=== PATIENT | female | born 1975 | race Caucasian/White ===

== ENCOUNTER 2023-01-25 10:51 | Emergency (ER) | payer OTHER ==
[2023-01-25 11:05] VITALS: BP 129/83; PULSE 79; RESP 16; TEMP 99.5; BMI 24.7
== END 2023-01-25 11:31 | disposition home or self-care (01) ==
LOC: FER 10:51
DX: I10 Essential (primary) hypertension (principal)
CPT/HCPCS: 99282-25

== ENCOUNTER 2023-09-26 08:57 | Emergency (ER) | payer OTHER ==
[2023-09-26 09:14] VITALS: RESP 18; TEMP 98.5; BMI 23.2
[2023-09-26 09:37] LABS: HEMATOCRIT 47.2 % (32.4-45.2); HEMOGLOBIN 15.4 G/dL (10.7-15.3); MCH 28.5 pg (25.7-33.7); MCHC 32.7 g/dl (32.0-36.0); MEAN CELL VOLUME 87.3 fl (80-96); MEAN PLT VOLUME 9.9 fl (7.5-11.1); RBC 5.41 10^6/uL (3.60-5.2); RDW 13.8 % (11.6-15.6); WHITE BLOOD COUNT 7.7 10^3/uL (4.0-10.8)
[2023-09-26 09:49] LABS: ALBUMIN 4.6 g/dl (3.4-5.0); ALK PHOS 45 U/L (45-117); ANION GAP 10 mmol/L (4-13); BILIRUBIN,TOTAL 0.4 mg/dl (0.2-1); CALCIUM 9.8 mg/dl (8.5-10.1); CHLORIDE 101 mmol/L (98-107); CO2 25 mmol/L (21-32); CREATININE 0.7 mg/dl (0.6-1.3); GLUCOSE,RANDOM 94 mg/dl (74-106); MAGNESIUM 1.7 mg/dL (1.8-2.4); POTASSIUM 3.6 mmol/L (3.5-5.1); SGOT/AST 12 U/L (15-37); SGPT/ALT 14 U/L (7-52); SODIUM 136 mmol/L (136-145); TOT PROT 7.6 g/dl (6.4-8.2)
[2023-09-26 10:06] LABS: PLATELET ESTIMATE ADEQUATE
[2023-09-26 10:35] VITALS: BP 121/74; PULSE 89
== END 2023-09-26 11:18 | disposition home or self-care (01) ==
LOC: FER 08:57
DX: R00.2 Palpitations (principal); R42 Dizziness and giddiness; R61 Generalized hyperhidrosis; F41.0 Panic disorder [episodic paroxysmal anxiety]
CPT/HCPCS: 36415; 71046-TC-FY; 80053; 81003; 81015; 83735; 84443; 84484; 85027; 93005; 99285-25